=== PATIENT | male | born 1995 | race Caucasian/White ===

== ENCOUNTER 2017-12-18 18:51 | Inpatient (IN) | payer BC, OTHER ==
--- NOTE | 2017-12-18 19:11 | EDPHY ---
H & P Stated Complaint: skin redness - Personal History Current Tetanus/Diphtheria Vaccine: Yes Current Tetanus Diphtheria and Acellular Pertussis (TDAP): Yes - Medical/Surgical History Hx Asthma: No Hx Chronic Respiratory Disease: No Hx Diabetes: No Hx Cardiac Disease: No Hx Renal Disease: No Hx Cirrhosis: No Hx Alcoholism: No Hx HIV/AIDS: No Hx Splenectomy or Spleen Trauma: No Other PMH: opiate and benzo abuse, - Social History Smoking Status: Current every day smoker Time Seen by Provider: 12/18/17 19:11 Constitutional: Initial Vital Signs Temperature (C) 37.3 C 12/18/17 18:56 Heart Rate 108 H 12/18/17 18:56 Respiratory Rate 16 12/18/17 18:56 Blood Pressure 151/96 H 12/18/17 18:56 O2 Sat (%) 94 12/18/17 18:56 O2 Delivery Mode Room Air Allergies/Adverse Reactions: No Known Allergies Allergy (Verified 12/18/17 19:50) Medical Decision Making Procedures: Procedure: Abscess drainage. I was asked by Dr. Marek Lacy to perform incision drainage on the bilateral dorsal hand abscesses. The patient's abscess was located on the bilateral dorsal hand. I obtained verbal consent from the patient to drain the abscess who was informed about the possibility of bleeding and pain. The abscesses were incised with 15. Scalpel and a moderate amount of purulent drainage was expressed. I irrigated the wound and placed some packing bilaterally. Dorsal right hand wound aspirate obtained and sent to laboratory.. The patient tolerated the procedure well. The procedure was performed by myself. (Rohith Oviedo) ED Course/Re-evaluation: CHIEF COMPLAINT: Bilateral hand redness and swelling HISTORY OF PRESENT ILLNESS: The patient is a a 22 y/o male with a history of IV drug use complaining of bilateral hand redness and swelling. He admits to using IV heroin use in both wrists. Denies right armpit pain but has mild left armpit pain. Denies fever, chest pain, shortness of breath, abdominal pain, urinary or bowel complaints, numbness, paresthesias. REVIEW OF SYSTEMS: A 10 point review of systems was performed and is negative with the exception of the elements mentioned in the history of present illness. PHYSICAL EXAM: HR, BP, O2 Sat, RR. Temp noted General Appearance: Alert, well hydrated, appropriate, and non-toxic appearing. Head: Atraumatic without scalp tenderness or obvious injury Eyes: Pupils equal, round, reactive to light and accommodation, EOMI, no trauma , no injection. Ears: Clear bilaterally, no perforation, normal landmarks Nose: Atraumatic, no rhinorrhea, clear. Throat: There is no erythema or exudates, no lesions, normal tonsils, mucus membranes moist. Neck: Supple, nontender, no lymphadenopathy. Respiratory: No retractions, no distress, no wheezes, and no accessory muscle use. Lungs are clear to auscultation bilaterally. Cardiovascular: Regular rate and rhythm, no murmurs, rubs, or gallops. Bilateral carotid, radial, dorsalis pedis, and posterior tibial pulses intact. Good capillary refill all extremities. Gastrointestinal: Abdomen is soft, nontender, non-distended, no masses, no rebound, no guarding, no peritoneal signs. Musculoskeletal: Mild left axilla tenderness to palpation. Normal active ROM of all extremities, atraumatic. Neurological: Alert, appropriate, and interactive. Nonfocal neuro Skin: bilateral dorsal, distal wrist crease wrist abscess . No rashes, good turgor, no nodules on palpation. Past medical history: Opiate and benzo abuse Past surgical history: Denies Family history: Denies Social history: Homeless, single, not employed DIFFERENTIAL DIAGNOSIS: The differential diagnosis for the patient's abscesses included but was not limited to IV drug use, cellulitis, viral syndrome, and sepsis. MEDICAL DECISION MAKING: The patient is a a 22 y/o male with a history of IV drug use presenting with bilateral hand redness and swelling. On exam he has bilateral dorsal, distal wrist crease wrist abscess and mild left axilla tenderness to palpation. Labs ordered; imaging studies not indicated at this time. 2gm IV Vancomycin administered. [facility] will preform an I&D. 1942: Consulted with hospitalist service, Dr. Meeks accepts admission of this patient. 1949: Reassessed patient, his abscesses have been drained. Patient is comfortable with plan for admission. (Marek Lacy) Departure - Departure Disposition: [facility] Inpatient Acute Clinical Impression: Heroin abuse, Abscess Cellulitis Qualifiers: Site of cellulitis: extremity Site of cellulitis of extremity: upper extremity Laterality: left Qualified Code(s): L03.114 - Cellulitis of left upper limb Condition: Fair Report Scribed for: Marek Lacy Report Scribed by: Sarah Major Date of Report: 12/18/17 Time of Report: 19:12
[2017-12-18] MEDS ORDERED: VANCOMYCIN 2 GM in NS 500 ML IV ONE (19:15)
[2017-12-18] MEDS ORDERED: VANCOMYCIN 1 GM/NS 250 ML BAG IV ONE (19:51)
[2017-12-18 19:52] LABS: PLATELET COUNT 337 10^3/uL (150-400)
[2017-12-18 20:01] LABS: INR 1.32 (0.83-1.16); PROTIME(PATIENT) 16.6 SEC (12.0-15.0)
[2017-12-18] MEDS ORDERED: LORazepam 2 MG/ML INJ IVP PRN (20:46)
[2017-12-18] MEDS ORDERED: PROMETHAZINE HCL 25 MG/ML INJ IVP PRN (20:46)
[2017-12-18] MEDS ORDERED: ACETAMINOPHEN 325 MG TAB PO PRN (20:46)
[2017-12-18] MEDS ORDERED: ONDANSETRON DISINTEGRATING 4 MG TAB PO PRN (20:46)
[2017-12-18] MEDS ORDERED: LORazepam 0.5 MG TAB PO PRN (20:46)
[2017-12-18] MEDS ORDERED: ONDANSETRON 4 MG/2 ML VIAL IVP PRN (20:46)
[2017-12-18] MEDS ORDERED: KETOROLAC 30 MG/1 ML SDV IVP ONE ×2 (20:56→23:45)
[2017-12-18] MEDS ORDERED: NS 1,000 ML IV SCH (21:00)
--- NOTE | 2017-12-18 22:20 | GHP ---
[f rep st] HISTORY AND PHYSICAL DATE OF ADMISSION: 12/18/2017 CHIEF COMPLAINT: Swelling and redness in bilateral hands. HISTORY: This is a 22-year-old male with past medical history of IV drug abuse and benzodiazepine ab use, who presents with redness, pain, and swelling in his bilateral hands, left greater than right. He notes that he has been shooting heroin in both wrists over the last several days and developed abs cesses in both hands. He notes he has had fever on and off for the last several days as well. He brown s been attempting to quit using heroin and benzodiazepines relatively unsuccessfully. He states his last use was last night. He generally uses 2 g of heroin a day and up to 10 to 15 mg of Xanax per da y. He states he has been using Xanax for 6 years without any break. He does have a plan to be treat ed for his addiction in [place] and plans to return to [place] when he is discharged from this hospit al. He is beginning to have some mild symptoms of withdrawal but nothing severe at this time. PAST MEDICAL HISTORY: 1. IV drug abuse. 2. Benzodiazepine abuse. PAST SURGICAL HISTORY: Prior abscess drainage but otherwise none. SOCIAL HISTORY: Patient is currently homeless and single. He, again, uses opiates and benzos and is a cigarette smoker. FAMILY HISTORY: Patient denies. REVIEW OF SYSTEMS: 10-point review of systems obtained and negative except as per HPI. PHYSICAL EXAMINATION: VITAL SIGNS: BP 117/70, heart rate 91, respiratory rate 16, O2 sats 93% on ro om air, temperature 37.4. GENERAL APPEARANCE: Well-developed, well-nourished man. He is awake and alert. He is in no acute distress. EYES: Anicteric. HENT: Oropharynx clear. CARDIOVASCULAR: Re gular rate and rhythm. No MRG. PULMONARY: CTA bilaterally. Normal work of breathing. ABDOMEN: S oft, nontender. Positive bowel sounds. EXTREMITIES: No clubbing, cyanosis, or edema. SKIN: Bilat eral hands with significant erythema and edema on the dorsal surface. There are 2 areas that have be en incised and drained and packed in the ER. Otherwise, warm, dry, well perfused. NEURO/PSYCH: Ibeth rt, oriented, appropriate, pleasant. CLINICAL DATA: Labs reviewed notable for white blood cell count of 15.79. Coags are relatively norm al. Chemistry remarkable only for glucose of 117. ASSESSMENT AND PLAN: This is a 22-year-old man with past medical history of intravenous drug abuse p resenting with bilateral hand cellulitis. 1. Bilateral hand cellulitis with associated abscess that has now been incised, drained, and packed. Blood and wound cultures have been sent and are pending. Patient has been started on vancomycin, w hich will be continued. We will ask for Infectious Disease to help with ongoing management. 2. Intravenous drug abuse with complications as per above. Patient states that he has a plan to ent er detoxification in [place] once he is discharged from the hospital. We will request that Tyrone cao help to verify that this is the case. This may make his pain management difficult. He will b e started on scheduled Toradol as well as oxycodone and Dilaudid as needed. 3. Benzodiazepine abuse. Patient has been on benzodiazepines for 6 years. He states he has had iss ues in the past with withdrawal when he is off of those. We will begin scheduled Librium with as allison blue Ativan available if needed. Again, plan for rehab is as per above. 4. Leukocytosis in the setting of cellulitis. No other real evidence for sepsis at this time. 5. Inpatient status: Patient will need greater than 48-hour stay for evaluation and management of a lianna. Patient is new to my care. Old records reviewed and summarized as per HPI and past medical history. Care plan reviewed with ER physician as per above. /[id number]/MODL
[2017-12-19] MEDS: oxyCODONE IR 5 MG TAB PO PRN (02:44)
[2017-12-19] MEDS ORDERED: VANCOMYCIN 1.25 GM in NS 250 ML IV ONE (04:00)
[2017-12-19] MEDS: KETOROLAC 15 MG/1 ML SDV IVP SCH ×4 (05:33→23:53)
--- NOTE | 2017-12-19 10:42 | HOSPPROG ---
Hospitalist Progress Note Assessment/Plan: Patient is a 22-year-old male with past medical history of IV drug abuse and benzodiazepine abuse who presented with redness pain and swelling in his bilateral hands. He had been shooting heroin in both his wrist over the last relate days and developed abscesses in both hands. He has had fevers off and on. He generally uses 2 g of heroin a day and up to 10-15 of Xanax a day. Today is my 1st encounter with the patient. Chart reviewed. Discussed his care with Infectious Disease. Will ask for a hand surgeon to further evaluate him. * bilateral hand cellulitis with associated abscess that had been I indeed -continue antibiotics per Infectious Disease -spoke with Dr Segundo and he will see Julio César later today -Left hand appears more red and tender * IV drug abuse -heroine * benzodiazepine use and abuse -on scheduled Librium * alcohol abuse * leukocytosis -follow *Plan: appreciate Dr Segundo and Dr Gutierrez seeing Julio César. Will continue care and monitor for withdrawal symptoms. On scheduled Librium so this should help. Subjective: Julio César is tired, wants to sleep. Has pain with flexion of left wrist and has pain at finger joints mainly on the left hand. Objective: Vital Signs Temp Pulse Resp BP Pulse Ox 36.6 C 90 18 121/59 H 93 12/19/17 08:00 12/19/17 08:00 12/19/17 08:00 12/19/17 08:00 12/19/17 08:00 Laboratory Results 12/19/17 06:13 12/18/17 19:41 12/18/17 12/19/17 12/20/17 05:59 05:59 05:59 Intake Total 2300 Output Total 400 Balance 2300 -400 PT 16.6 SEC (12.0-15.0) H 12/18/17 19:41 INR 1.32 (0.83-1.16) H 12/18/17 19:41 - Physical Exam Constitutional: no apparent distress, appears nourished Eyes: PERRL Ears, Nose, Mouth, Throat: hearing normal Cardiovascular: regular rate and rhythym Respiratory: no respiratory distress Gastrointestinal: normoactive bowel sounds Skin: warm, other (bilateral hands with eythema, left hand dorsal area is a reddened area with packing in place.) Neurologic: AAOx3, other (sleepy) Psychiatric: interacting appropriately ICD10 Worksheet Patient Problems: Problems Problem Status Onset Abscess Acute Cellulitis Acute Heroin abuse Acute NYLA (acute kidney injury) Acute Contusion Acute Rhabdomyolysis Acute
--- NOTE | 2017-12-19 11:04 | PDMN ---
Medical Necessity Medical necessity: M70 Cellulitis A-2 days: high risk IV drug abuse, homeless , with cellulitis req I/D, leukocytosis, further monitoring and tx needed > 2 midnights.
--- NOTE | 2017-12-19 11:10 | ASMTCASEMG ---
Living Arrangements What is your living Answers: Alone arrangement? Who do you live with? Type Of Residence What kind of residence do Answers: Apartment you live in? Discharge Plan Comments Coordination Status Comments Notes: Pt is a 22 y/o man admitted for swelling and redness in bilateral hands. Pt is homeless. Pt uses iv opiates and benzos. CM attempted to meet w/ pt for dispo planning. Pt was asleep and CM was unable to rouse pt. CM dropped off substance abuse resources. CM was unable to complete the CAGE assessment. Cinthia from will be stopping by to meet with pt to determine if he has insurance. If not, Cinthia will have [employer] meet w/ pt to apply for Medicaid. [facility]. [facility] will check in with pt. Needs are TBD at this time. CM to follow. Plan: TBD Date Signed: 12/19/2017 11:10 AM Electronically Signed By:TRU Bean
--- NOTE | 2017-12-19 11:23 | GCON ---
[f rep st] CONSULTATION INFECTIOUS DISEASE CONSULTATION DATE OF CONSULTATION: 12/19/2017 REFERRING PHYSICIAN: Jimmy Meeks MD REASON FOR CONSULTATION: Bilateral swelling and redness. CHIEF COMPLAINT: Pain and redness involving both hands. HISTORY OF PRESENT ILLNESS: This is a 22-year-old male with a past medical history signifi cant for IV drug abuse, who last used heroin about 3-4 days ago. He states that he injected into bot h of his wrists regions. He states that shortly thereafter, he started to notice swelling and rednes s developing in both hands, with fevers and chills. He then started to have more localized swellings noted within those areas. He came into the ER yesterday, was found to have a leukocytosis of 15.7, with a low-grade temperature. He was tachycardic and mildly hypertensive. In the ED, they incised a nd drained 2 areas, 1 area on both hands, and packed them. He was put on vancomycin and remains on t hat presently. He states that he continues to have pain involving both hands. He complains of numbn ess of the fingertips and pressure involving the hands, and he is unable to flex his fingers bilatera lly to any significant degree. Blood cultures x2 sets have been drawn, and they are pending. He had a wound culture done from the I and D yesterday, which showed 2+ gram-positive cocci in chains and 1 + gram-positive rods. He states he denies any licking of needles. Infectious Disease is now consult ed for further evaluation and opinion. REVIEW OF SYSTEMS: GENERAL: Had fevers and chills. HEAD: No headaches. EYES: No change in visio n. ENT: No sore throat, difficulty swallowing, ear pain or ear drainage. CARDIOVASCULAR: Denies a ny chest pain or rapid heartbeat. RESPIRATORY: Denies any shortness of breath. No acute shortness of breath or coughing. He does have some chronic cough in general. ABDOMEN: No vomiting, abdominal pain, or diarrhea. He has some mild nausea today. GENITOURINARY: Denies any dysuria, hematuria, o r penile discharge. MUSCULOSKELETAL: Denies any other joint or muscle aches. SKIN: No other open wounds or areas of redness. Rest of 10-point review of systems essentially negative, except for abov e. PAST MEDICAL HISTORY: Significant for injection drug usage. PAST SURGICAL HISTORY: Related to previous abscess drainages. ALLERGIES: No known drug allergies. SOCIAL HISTORY: He smokes about a pack of cigarettes a day. He drinks about a liter of alcohol, whi ch includes vodka. He uses opiates and benzos. He is homeless and is single. FAMILY HISTORY: Reviewed and found to be unremarkable. MEDICATIONS: As per MAR. PHYSICAL EXAMINATION: VITAL SIGNS: Temperature current is 36.6. Pulse is 90. Blood pressure 121/5 9. Respiratory rate is 18. Saturations are 93% on room air. GENERAL: Patient is resting in bed. No acute respiratory distress. Awake, alert, and oriented x3. HEENT: Head is normocephalic, atraum atic. Eyes: Mild conjunctival injection bilaterally. No petechiae noted. Oropharynx is clear. No posterior drainage, erythema or thrush. CARDIOVASCULAR: S1, S2. Regular rate and rhythm. No murm urs appreciated. RESPIRATORY: Clear to auscultate bilaterally. No rhonchi or rales appreciated. A BDOMEN: Positive bowel sounds in all quadrants. Soft, nontender, nondistended. No obvious organome noman appreciated. EXTREMITIES: No lower extremity edema. Pertinent findings showed bilateral hand and wrist and distal forearm swelling. Both hands have erythema on the dorsal aspect, with the left hand having an abscess partially drained, but still some fluctuant fluid noted and is quite tender. The right hand with a smaller area drained. The skin is warm on both hands. Patient reports numbnes s on bilateral hands as I palpate his fingertips. His peripheral pulses on both upper extremities ar e well appreciated. He is only able to flex his fingers bilaterally minimally. No palmar erythema. Erythema is fairly limited to the dorsal aspect of the hands and wrist mostly, without any further l ymphangitic spread up the forearms. LABORATORY DATA: White blood cell count currently 9.2, down from 15.7, hemoglobin 13.0. Platelets a re 296. Venous lactic acid 1.2. Sodium 137, potassium 3.9, chloride 97, bicarb 26. BUN is 6, creat inine 0.6. Blood cultures x2 sets are pending. Hand cultures are as stated above. ASSESSMENT: 1. Bilateral hand cellulitis and abscess, status post partial incision and drainage, with possible f lexor tenosynovitis. 2. Injection drug usage. PLAN: At this point in time, given Gram stain findings, we will change antibiotics to Unasyn for bro ader coverage and discontinue vancomycin. Recommended elevating the upper extremities, and I have, i n coordination with the nurse, placed pillows to achieve that. Recommend Hand Surgery to be consulte d to assess for additional need for I and D or further exploration. We will hold off on any addition al MRI for now until Hand Surgery has seen the patient. We will repeat labs in the a.m. Given injec tion drug usage, will check HIV, hepatitis C and hepatitis B serologies to start, and if any of those are positive, further workup will be initiated. Care was coordinated with the hospitalist team. Ca re was coordinated with his nurse. Plan of care was discussed with the patient. I thank you very much for the opportunity to participate in the care for your patient. /[id number]/MODL
[2017-12-19] MEDS: AMPICILLIN/SULBACTAM 3 GM in NS 100 ML IV SCH ×3 (11:43→23:48)
[2017-12-19 13:04] LABS: HEPATITIS B SURFACE ANTIGEN NEGATIVE (NEGATIVE)
[2017-12-19 13:22] LABS: HEPATITIS B CORE AB TOTAL NEGATIVE (NEGATIVE); HEPATITIS C ANTIBODY TOTAL NEGATIVE (NEGATIVE); HIV TYPE 1 AND 2 NEGATIVE (NEGATIVE)
--- NOTE | 2017-12-19 14:04 | GCON ---
[f rep st] CONSULTATION DATE OF CONSULTATION: 12/19/2017 REASON FOR CONSULTATION: Hand infections. HISTORY OF PRESENTING COMPLAINT: The patient is a 22-year-old man who has a significant history of IV drug abuse. He was attempting to inject himself in both of his dorsal wrist areas when he developed swelling and redness. This apparently started about 3-4 days ago. He presented to the emergency room yesterday. He has been admitted to the hospital and started on IV antibiotics. PAST MEDICAL HISTORY: Significant for IV drug abuse. PAST SURGICAL HISTORY: He has had previous drainages of abscess. ALLERGIES: None known. PHYSICAL EXAMINATION: GENERAL: Today, he has been given Librium and apparently no other medications, but is very sleepy and unresponsive. I was able to rouse him enough to tell him who I was and that he would probably be needing surgery. EXTREMITIES: Examination of the extremities reveals diffuse erythema over the dorsum of both wrists, and necrotic areas are about a centimeter in diameter right at the level of the wrist joint on the left side with purulent, foul-smelling material draining out. IMPRESSION: Purulent hand infections, certainly down to the level of the extensor tendons and possibly down into the wrist joint. PLAN: Incision and drainage and irrigation in the operating room. /[id number]/MODL MTDD
[2017-12-19] MEDS ORDERED: BUPIVACAINE 0.5% 30 ML SDV ONE (16:40)
--- NOTE | 2017-12-19 17:38 | PDANEPAE ---
ANE History of Present Illness 22 yo IVDA with B wrist abscesses for I&D. ANE Past Medical History - Cardiovascular History Hx Hypertension: No Hx Arrhythmias: No Hx Chest Pain: No Hx Coronary Artery / Peripheral Vascular Disease: No Hx CHF / Valvular Disease: No Hx Palpitations: No - Pulmonary History Hx COPD: No Hx Asthma/Reactive Airway Disease: No Hx Oxygen in Use at Home: No Hx Sleep Apnea: No Sleep Apnea Screening Result - Last Documented: Negative - Endocrine History Hx Diabetes: No Hypothyroid: No Obesity: moderate - Liver History Hx Hepatic Disorders: No Hepatic History Comment: coags are elevated, no obvious reason - no LFTs in chart - Cancer History Hx Cancer: No - Other Health History Other Health History: Heroin and benzo abuse; EtOH and tobacco abuse - Chronic Pain History Chronic Pain: No ANE Review of Systems Review of Systems: - Systems Skin: Reports: other (abscesses on wrists) ANE Patient History - Allergies Allergies/Adverse Reactions: No Known Allergies Allergy (Verified 12/18/17 19:50) - Home Medications Home Medications: NK [No Known Home Meds] 12/18/17 [Last Taken Unknown] - NPO status NPO Since - Liquids (Date): 12/19/17 NPO Since - Liquids (Time): 09:00 NPO Since - Solids (Date): 12/19/17 NPO Since - Solids (Time): 09:00 - Anes Hx Anes Hx: no prior problems - Smoking Hx Smoking Status: Current every day smoker Marijuana use: No - Alcohol Use Alcohol Use: Heavy - Family Anes Hx Family Anes Hx: neg - N/A ANE Labs/Vital Signs - Labs Result Diagrams: 12/19/17 06:13 12/18/17 19:41 - Vital Signs Blood Pressure: 109/69 Heart Rate: 72 Respiratory Rate: 16 O2 Sat (%): 94 Height: 187.96 cm Weight: 127 kg ANE Physical Exam - Airway Mallampati Score: Class 3 (not cooperative with exam) Mouth exam: poor dentition - Pulmonary Pulmonary: clear to auscultation - Cardiovascular Cardiovascular: regular rate and rhythym - ASA Status ASA Status: III ANE Anesthesia Plan Anesthesia Plan: general endotracheal anesthesia
[2017-12-19] MEDS ORDERED: LR 1,000 ML IV ONE (17:45)
[2017-12-19] MEDS ORDERED: BACITRACIN 50,000 UNITS/10 ML SYR IRR ONE (18:05)
[2017-12-19] MEDS ORDERED: PROPOFOL/EMULSION 500 MG/50 ML BOTTLE IV ONE (18:07)
[2017-12-19] MEDS ORDERED: ROCURONIUM 100 MG/10 ML VIAL ONE (18:07)
[2017-12-19] MEDS ORDERED: LIDOCAINE 2% 5 ML SDV ONE (18:07)
[2017-12-19] MEDS ORDERED: ONDANSETRON 4 MG/2 ML VIAL ONE (18:25)
[2017-12-19] MEDS ORDERED: NEOSTIGMINE METHYLSULFATE 10 MG/10 ML MDV ONE ×2 (18:59→19:02)
[2017-12-19] MEDS ORDERED: GLYCOPYRROLATE 0.2 MG/1 ML VIAL ONE ×2 (19:02→19:03)
[2017-12-19] MEDS ORDERED: PROMETHAZINE HCL 25 MG/ML INJ IVP PRN (19:05)
[2017-12-19] MEDS ORDERED: HYDROmorphONE/DILAUDID 2 MG/ML INJ IVP PRN (19:05)
[2017-12-19] MEDS ORDERED: NALOXONE HCL 0.4 MG/ML INJ IVP PRN (19:05)
[2017-12-19] MEDS ORDERED: LR 500 ML IV PRN (19:05)
[2017-12-19] MEDS ORDERED: fentaNYL 100 MCG/2 ML INJ IVP PRN (19:05)
[2017-12-19] MEDS ORDERED: DIAZEPAM 5 MG/ML 1 ML SYR IVP PRN (19:05)
--- NOTE | 2017-12-19 19:32 | POSTOPPROG ---
Post Op Note Date of Operation: 12/19/17 Surgeon: Vijay Segundo Anesthesia: GET(General Endotracheal) Pre-op Diagnosis: Bilateral dorsal hand infections Post-op Diagnosis: same Procedure: Incision and drainage Findings: Infected pocket limited to extensor compartment Inf/Abcess present in the surg proc area at time of surgery?: Yes Depth: Deep Incisional (Fascial) EBL: 50-100
--- NOTE | 2017-12-19 19:36 | POSTANESTH ---
Post Anesthetic Evaluation Cardiovascular Status: Normal, Stable Respiratory Status: Normal, Stable Level of Consciousness/Mental Status: Moderately Sleepy, Other, See Comment ( Similar to pre-op state. Responds to questions with prodding. Keeps eyes closed. ) Pain Control: Adequate, Prn Tx Ordered Nausea/Vomiting Control: Adequate, Prn Tx Ordered Complications Possibly Related to Anesthesia: None Noted
[2017-12-19] MEDS ORDERED: KETOROLAC 15 MG/1 ML SDV ONE (19:43)
--- NOTE | 2017-12-19 19:45 | GOP ---
[f rep st] OPERATIVE REPORT DATE OF OPERATION: 12/19/2017 SURGEON: Vijay Segundo MD PREOPERATIVE DIAGNOSIS: Infection, bilateral dorsal hands. POSTOPERATIVE DIAGNOSIS: Infection, bilateral dorsal hands. PROCEDURE PERFORMED: Bilateral incision, drainage and irrigation of dorsal hand and distal forearm. FINDINGS: ESTIMATED BLOOD LOSS: 100 cc. DESCRIPTION OF PROCEDURE: With the patient lying supine under general anesthesia, both hands were prepped with Betadine and free draped. On the right side, the existing laceration was extended medially and laterally and proximally and distally in a curvilinear fashion, and the skin flaps were elevated. Significant bleeding from the inflamed tissue was encountered and a purulent underlying cavity was opened up. The cavity itself was fairly well confined and did not extend down below the extensor tendon level. Skin and soft tissue flaps were elevated at a level just above the extensor tendons, and the area was extensively undermined to ensure that there were not any separate purulent fluid pockets. Synovial tissue, which appeared to be chronically inflamed was encountered, but no purulent pockets. The purulent pocket that was present was well confined and did not extend down into the joint. I felt that it would be unwise to open up the joint and expose it to the contamination from the more superficial field. On the left side, a similar procedure was performed, although in this case there was a necrotic tissue at the edges of the existing wound that was debrided. Skin flaps were elevated, and again some purulent matter was countered, which was swabbed for Gram stain and culture. Again, undermining was carried out bluntly at a level just superficial to the tendons and all extensive boggy and inflamed synovium was encountered. No pus pockets were found. The initial pocket extended again on this side down to the tendon level, but not into the wrist itself. Again, the wrist joint was not opened up. Irrigation with the jet pulse editor newspaper was carried out on both sides using 3 L of saline with bacitracin. The wounds were closed loosely with 4-0 Prolene. In the case of the left dorsal wound where there had been necrotic tissue, a small area was left open and this was packed with saline soaked gauze. The remainder of the wound on the left side was dressed with dry gauze and Regino. A volar slab fiberglass padded splint was placed and on the right side the wound was dressed with Xeroform and gauze, and again a volar slab fiberglass splint was placed. The procedure was tolerated well. /[id number]/MODL MTDD
[2017-12-19] MEDS ORDERED: fentaNYL 100 MCG/2 ML INJ ONE (19:53)
[2017-12-19] MEDS: HYDROmorphone HCL/NS 0.5 MG/ML SYR IVP PRN (20:36)
[2017-12-20] MEDS: KETOROLAC 15 MG/1 ML SDV IVP SCH ×4 (05:13→23:12)
[2017-12-20] MEDS: AMPICILLIN/SULBACTAM 3 GM in NS 100 ML IV SCH ×4 (05:13→23:12)
[2017-12-20] MEDS: oxyCODONE IR 5 MG TAB PO PRN ×5 (05:44→21:46)
--- NOTE | 2017-12-20 09:06 | HOSPPROG ---
Hospitalist Progress Note Assessment/Plan: Patient is a 22-year-old male with past medical history of IV drug abuse and benzodiazepine abuse who presented with redness pain and swelling in his bilateral hands. He had been shooting heroin in both his wrist over the last relate days and developed abscesses in both hands. He has had fevers off and on. He generally uses 2 g of heroin a day and up to 10-15 of Xanax a day. * bilateral hand cellulitis with associated abscess -cx growing staph aureus -appreciate Dr Segundo -went to OR yesterday for I & D -unasyn * IV drug abuse -heroine * benzodiazepine use and abuse -on scheduled Librium * alcohol abuse -no ssx of withdrawal * leukocytosis -follow *Plan: cont current treatment Subjective: Julio César is not c/o pain, overall doing better today Objective: Vital Signs Temp Pulse Resp BP Pulse Ox 37.2 C 78 12 119/56 L 93 12/20/17 08:00 12/20/17 08:00 12/20/17 08:00 12/20/17 08:00 12/20/17 08:00 Microbiology 12/19/17 18:39 Gram Stain - Final Wrist - Eswab Laboratory Results 12/19/17 06:13 12/18/17 19:41 12/19/17 12/20/17 12/21/17 05:59 05:59 05:59 Intake Total 2300 1630 Output Total 550 Balance 2300 1080 PT 16.6 SEC (12.0-15.0) H 12/18/17 19:41 INR 1.32 (0.83-1.16) H 12/18/17 19:41 - Physical Exam Constitutional: no apparent distress, appears nourished, not in pain Eyes: PERRL Ears, Nose, Mouth, Throat: hearing normal Cardiovascular: regular rate and rhythym Respiratory: no respiratory distress Gastrointestinal: normoactive bowel sounds Skin: warm, other (bilateral hands in dressings) Neurologic: AAOx3 Psychiatric: interacting appropriately ICD10 Worksheet Patient Problems: Problems Problem Status Onset Abscess Acute Cellulitis Acute Heroin abuse Acute NYLA (acute kidney injury) Acute Contusion Acute Rhabdomyolysis Acute
[2017-12-20] MEDS ORDERED: BISACODYL 10 MG SUPP PR PRN (09:07)
[2017-12-20] MEDS ORDERED: LACTULOSE 20 GM/30 ML UDCUP PO PRN (09:07)
[2017-12-20] MEDS ORDERED: MAGNESIUM HYDROXIDE 30 ML UDCUP PO PRN (09:07)
[2017-12-20] MEDS: POLYETHYLENE GLYCOL 3350 17 GM PKT PO SCH (09:19)
--- NOTE | 2017-12-20 13:53 | SOAPPROG ---
SOAP Progress Note Assessment/Plan: Assessment:Marked improvement. Still a wound cavity present on the left hand dorsum that will need to heal in by secondary intention. Plan: Xeroform packing q day to left hand wound. Right hand dry gauze dressing. Maintain both wrists in splints for now. 12/20/17 13:53 Subjective: C/O discomfort in wrists. Objective: Dressings changed. Erythema is decreased on both side. Swelling in distal dorsum of right hand still significant. Left hand swelling much better. Wound cavity present on left hand where necrotic tissue was debrided looks nice and clean with no purulence or odor. Vital Signs Temp Pulse Resp BP Pulse Ox 36.9 C 83 12 120/62 92 12/20/17 12:00 12/20/17 12:00 12/20/17 12:00 12/20/17 12:00 12/20/17 12:00 Microbiology 12/19/17 18:39 Gram Stain - Final Wrist - Eswab Laboratory Results 12/19/17 06:13 12/18/17 19:41 12/19/17 12/20/17 12/21/17 05:59 05:59 05:59 Intake Total 2300 1630 Output Total 550 Balance 2300 1080 PT 16.6 SEC (12.0-15.0) H 12/18/17 19:41 INR 1.32 (0.83-1.16) H 12/18/17 19:41 D ICD10 Worksheet Patient Problems: Problems Problem Status Onset Abscess Acute Cellulitis Acute Heroin abuse Acute NYLA (acute kidney injury) Acute Contusion Acute Rhabdomyolysis Acute
--- NOTE | 2017-12-20 14:49 | PCMIDPN ---
Assessment/Plan: #B hand cellulitis w cx showing MSSA and gamma hem strep. reviewed OR report which showed s/p I&D in one area down to tendon. No joint involvement --Tdap 6 mo ago --ideally ID to be present during dressing change to assess duration of therapy. --if tendon involvement not significant then likely can change to PO antibiotic to complete therapy --based on culture results Unasyn is okay. # IVDU: reviewed HIV, HCV negative and lack of immunity to HBV. Patient not sure if he has been vaccinated but states during incarceration rec'd a variety of vaccinations. prior to current IVDU, he reports he was clean for 1 year using opioid antagonist Meds, abx # 2 Unasyn 3gm IV q6h, # 1 s/p vancomycin 2gm and 1.25gm dose micro 12/18 wound cx :1+ MSSA, 3+ streptococcus HIV, HCV neg HBV not immune Subjective: feeling better reports decreased erythema on hand B pain improved Objective: Vital Signs Temp Pulse Resp BP Pulse Ox 36.9 C 83 12 120/62 92 12/20/17 12:00 12/20/17 12:00 12/20/17 12:00 12/20/17 12:00 12/20/17 12:00 Microbiology 12/19/17 18:39 Gram Stain - Final Wrist - Eswab Laboratory Results 12/19/17 06:13 12/18/17 19:41 12/19/17 12/20/17 12/21/17 05:59 05:59 05:59 Intake Total 2300 1630 Output Total 550 Balance 2300 1080 - Physical Exam General Appearance: alert, no apparent distress, obese, non-toxic Respiratory: lungs clear, No accessory muscle use Neck: supple Cardiac/Chest: regular rate, rhythm, No systolic murmur Extremities: other (dressing in place B hand without erythema extending past dressings, moving fingers well Bilaterally), No pedal edema Abdomen: non-tender, soft Skin: other (extensive tattooing) Neuro/Psych: alert, normal mood/affect, oriented x 3 - Line/s PIV Lines: other (Right medial forearm), No drainage, No erythema ICD10 Worksheet Patient Problems: Problems Problem Status Onset Abscess Acute Cellulitis Acute Heroin abuse Acute NYLA (acute kidney injury) Acute Contusion Acute Rhabdomyolysis Acute
--- NOTE | 2017-12-20 17:05 | ASMTCMCOM ---
CM Note CM Note Notes: Receive call from Cinthia in , she spoke with pt's parents. They are in the process of submitting COBRA for pt's insurance ([facility]). His parents are flying out on Monday. Per MD note, ID to look at wound and if no tendon involvement, can switch to po antibiotics. DC Plan: TBD Date Signed: 12/20/2017 05:04 PM Electronically Signed By:Kathia Julian RN
[2017-12-20] MEDS: SENNOSIDES/DOCUSATE SODIUM TAB PO SCH (21:46)
[2017-12-21] MEDS: KETOROLAC 15 MG/1 ML SDV IVP SCH ×4 (05:18→23:10)
[2017-12-21] MEDS: AMPICILLIN/SULBACTAM 3 GM in NS 100 ML IV SCH ×4 (05:18→23:10)
[2017-12-21] MEDS: SENNOSIDES/DOCUSATE SODIUM TAB PO SCH ×2 (09:59→20:07)
[2017-12-21] MEDS: oxyCODONE IR 5 MG TAB PO PRN ×2 (09:59→20:09)
[2017-12-21] MEDS: POLYETHYLENE GLYCOL 3350 17 GM PKT PO SCH (09:59)
--- NOTE | 2017-12-21 16:04 | HOSPPROG ---
Hospitalist Progress Note Assessment/Plan: Patient is a 22-year-old male with past medical history of IV drug abuse and benzodiazepine abuse who presented with redness pain and swelling in his bilateral hands. He had been shooting heroin in both his wrist over the last relate days and developed abscesses in both hands. He has had fevers off and on. He generally uses 2 g of heroin a day and up to 10-15 of Xanax a day. * bilateral hand cellulitis with associated abscess -cx growing staph aureus -s/p I & D -unasyn * IV drug abuse -heroine * benzodiazepine use and abuse -on scheduled Librium * alcohol abuse -no ssx of withdrawal * leukocytosis -follow *Plan: cont current treatment,likely dc in the next few days Subjective: Julio César said his hands are tender and swollen. Objective: Vital Signs Temp Pulse Resp BP Pulse Ox 36.6 C 71 20 129/70 H 94 12/21/17 11:14 12/21/17 11:14 12/21/17 11:14 12/21/17 11:14 12/21/17 11:14 Microbiology 12/19/17 18:39 Gram Stain - Final Wrist - Eswab Laboratory Results 12/19/17 06:13 12/18/17 19:41 12/20/17 12/21/17 12/22/17 05:59 05:59 05:59 Intake Total 1630 400 Output Total 550 Balance 1080 400 PT 16.6 SEC (12.0-15.0) H 12/18/17 19:41 INR 1.32 (0.83-1.16) H 12/18/17 19:41 - Physical Exam Constitutional: no apparent distress, appears nourished, uncomfortable Eyes: PERRL Ears, Nose, Mouth, Throat: hearing normal Respiratory: no respiratory distress Skin: warm, other (hands bilaterally with dressing, fingers slightely swolle) Musculoskeletal: full muscle strength Neurologic: AAOx3 Psychiatric: interacting appropriately ICD10 Worksheet Patient Problems: Problems Problem Status Onset Abscess Acute Cellulitis Acute Heroin abuse Acute NYLA (acute kidney injury) Acute Contusion Acute Rhabdomyolysis Acute
[2017-12-21] MEDS: HYDROmorphone HCL/NS 0.5 MG/ML SYR IVP PRN (16:09)
--- NOTE | 2017-12-21 17:30 | PCMIDPN ---
Assessment/Plan: Assessment: Bilateral hand cellulitis/abscess. Status post debridement on the right dorsal aspect. The debridement is down to tendon but there is no joint involvement. Operative dressing not changed yet. If cleared by surgery that there is no active tendon sheath involvement we have the options to change to oral antibiotics to complete therapy. At present however will continue the IV Unasyn. Plan: 1. Continue IV Unasyn at present dosing. 2. Try to observe the open wounds at a later visit. Subjective: Patient states that his hands still hurt although they are improved from admission. No fevers or chills. Tolerating Unasyn without issue. Objective: Unasyn # 2 Vital Signs Temp Pulse Resp BP Pulse Ox 36.9 C 78 16 114/60 94 12/21/17 16:00 12/21/17 16:00 12/21/17 16:00 12/21/17 16:00 12/21/17 16:00 Microbiology 12/19/17 18:39 Gram Stain - Final Wrist - Eswab Laboratory Results 12/19/17 06:13 12/18/17 19:41 12/20/17 12/21/17 12/22/17 05:59 05:59 05:59 Intake Total 1630 400 Output Total 550 Balance 1080 400 - Physical Exam General Appearance: WD/WN, alert, no apparent distress, non-toxic Respiratory: lungs clear, normal breath sounds, No respiratory distress Cardiac/Chest: regular rate, rhythm, No tachycardia Extremities: No non-tender, No normal inspection Skin: normal color, warm/dry, No rash Neuro/Psych: alert, normal mood/affect, oriented x 3 ICD10 Worksheet Patient Problems: Problems Problem Status Onset Abscess Acute Cellulitis Acute Heroin abuse Acute NYLA (acute kidney injury) Acute Contusion Acute Rhabdomyolysis Acute
[2017-12-22] MEDS: AMPICILLIN/SULBACTAM 3 GM in NS 100 ML IV SCH ×2 (05:06→11:24)
[2017-12-22] MEDS: KETOROLAC 15 MG/1 ML SDV IVP SCH ×2 (05:07→11:24)
[2017-12-22 07:29] VITALS: BP 105/83
[2017-12-22] MEDS: oxyCODONE IR 5 MG TAB PO PRN ×2 (08:24→11:24)
--- NOTE | 2017-12-22 09:31 | PCMIDPN ---
Assessment/Plan: 1. Bilateral hand cellulitis with abscess status post debridement: Dressings taken off and patient seen with Catherine Lowe. Given appearance of his wound, I do feel that he is okay to be discharged on oral Augmentin 875 p. O. Twice daily for another 11 days. The patient will follow-up in our wound care clinic within the week, and we will give him instructions on how to keep his wounds clean. He does not feel that he needs follow-up in our clinic, as he plans on leaving for [place] as soon as possible. Subjective: In good spirits. Anxious to leave. Objective: Unasyn 3 g IV q.6 hours day 3 Afebrile Vital Signs Temp Pulse Resp BP Pulse Ox 36.5 C 59 L 12 105/83 H 95 12/22/17 07:25 12/22/17 07:25 12/22/17 07:25 12/22/17 07:25 12/22/17 07:25 Microbiology 12/19/17 18:39 Gram Stain - Final Wrist - Eswab Laboratory Results 12/19/17 06:13 12/18/17 19:41 12/21/17 12/22/17 12/23/17 05:59 05:59 05:59 Intake Total 400 1350 Balance 400 1350 Wounds with 3+ Eikenella corrodens, 1+ MSSA, 4+ Streptococcus and prevotella, Blood cultures negative - Physical Exam General Appearance: alert, no apparent distress Extremities: other (Left hand with dime-sized fairly deep ulceration with a clean base. Some surrounding swelling, but no erythema. Visible hands structures below look clean. Sutures in place on the dorsum of his hands, with no visible erythema. Again, swelling is better.) ICD10 Worksheet Patient Problems: Problems Problem Status Onset Abscess Acute Cellulitis Acute Heroin abuse Acute NYLA (acute kidney injury) Acute Contusion Acute Rhabdomyolysis Acute
--- NOTE | 2017-12-22 09:48 | HOSPPROG ---
Hospitalist Progress Note Assessment/Plan: Patient is a 22-year-old male with past medical history of IV drug abuse and benzodiazepine abuse who presented with redness pain and swelling in his bilateral hands. He had been shooting heroin in both his wrist over the last relate days and developed abscesses in both hands. He has had fevers off and on. He generally uses 2 g of heroin a day and up to 10-15 of Xanax a day. * bilateral hand cellulitis with associated abscess -spoke w Dr Segundo and he will see Julio César prior to dc -s/p I & D -unasyn * IV drug abuse -heroine * benzodiazepine use and abuse -on scheduled Librium * alcohol abuse -no ssx of withdrawal * leukocytosis -follow *Plan: dc today, will have his script for Augmentin sent here, DC after Dr Segundo sees him. Has an appointment at the wound clinic this next . Difficult to see sooner with the . Will have wound care teach him how to do dressing changes daily. Subjective: Julio César has no complaints except for some swelling discomfort. Objective: Vital Signs Temp Pulse Resp BP Pulse Ox 36.5 C 59 L 12 105/83 H 95 12/22/17 07:25 12/22/17 07:25 12/22/17 07:25 12/22/17 07:25 12/22/17 07:25 Microbiology 12/19/17 18:39 Gram Stain - Final Wrist - Eswab Laboratory Results 12/19/17 06:13 12/18/17 19:41 12/21/17 12/22/17 12/23/17 05:59 05:59 05:59 Intake Total 400 1350 Balance 400 1350 PT 16.6 SEC (12.0-15.0) H 12/18/17 19:41 INR 1.32 (0.83-1.16) H 12/18/17 19:41 - Physical Exam Constitutional: no apparent distress, appears nourished, not in pain Eyes: PERRL Ears, Nose, Mouth, Throat: hearing normal Respiratory: no respiratory distress Skin: other (left hand with open wound, base clear. Right hand with min redness , sutures in place. both hand with diffuse swelling, but much improved.) Neurologic: AAOx3 Psychiatric: interacting appropriately, not anxious ICD10 Worksheet Patient Problems: Problems Problem Status Onset Abscess Acute Cellulitis Acute Heroin abuse Acute NYLA (acute kidney injury) Acute Contusion Acute Rhabdomyolysis Acute
[2017-12-22] MEDS: SENNOSIDES/DOCUSATE SODIUM TAB PO SCH (09:52)
[2017-12-22] MEDS: POLYETHYLENE GLYCOL 3350 17 GM PKT PO SCH (09:52)
--- NOTE | 2017-12-22 10:28 | GDS ---
[f rep st] DISCHARGE SUMMARY DISCHARGE DIAGNOSES: 1. Bilateral hand cellulitis and abscess. 2. Intravenous drug use. 3. Benzodiazepine use and abuse. 4. Alcohol abuse. 5. Leukocytosis. CONSULTATIONS: 1. Dr. Vijay Segundo. 2. Dr. Shazia Gutierrez. BRIEF HISTORY: The patient is a 22-year-old male who is from the [facility]. He has a history of IV drug abuse and had used heroin approximately 3-4 days prior to his admission. He injected into both of his wrists region when he started noticing swelling and redness developing in both hands. He also had associated fevers and chills. He had blood cultures performed, which did not note any infection. His wound infection grew out Staph aureus, Streptococcus intermedius, Prevotella buccae. He was treated with IV antibiotics. He is markedly improved. He will be discharged today on Augmentin. He will further follow up with Dr. Segundo and the wound clinic in the outpatient setting. HOSPITAL COURSE: 1. Bilateral hand cellulitis with associated abscess, status post I and D. Was treated with Unasyn and now will be on Augmentin. Further followup with the wound clinic and with Dr. Segundo. 2. IV drug abuse. He realizes this is impacting his life dramatically. His hope is to return to the [place] area with his parents and go into inpatient rehabilitation. 3. Benzodiazepine use and abuse. He was on low-dose Librium without any signs or symptoms of withdrawals. 4. Alcohol abuse. He has had no signs or symptoms of withdrawal. DISCHARGE CONDITION: Stable. Blood pressure is 105/83, heart rate 59. Respiratory rate is 12. O2 sats on room air 95%. Temperature is 36.5 Celsius. DISCHARGE MEDICATIONS: Please see the EMR. DISCHARGE INSTRUCTIONS: 1. To go to the wound clinic next Monday. An appointment has already been scheduled. 2. Follow up with Dr. Segundo for removal of his sutures. 3. If he develops fever, chills, worsening purulence from his wounds, to return to the ER. Greater than 30 minutes discharging and coordinating the patient's care. /[id number]/MODL MTDD
--- NOTE | 2017-12-22 11:38 | ASMTLACE ---
LACE Length of stay for Answers: 4-6 days current admission Acuity / Level of Answers: Yes Care: Did the patient have an inpatient admission? # of Emergency department Answers: 1-2 visits in the last 6 months Social determinants Answers: History of substance abuse (ETOH, street drugs, prescription drugs, etc.) Lack of community resources and/or lack of social support (no pcp, lives alone, transportation, julio cesar d) Score: 15 Date Signed: 12/22/2017 11:37 AM Electronically Signed By:TRU Bean
--- NOTE | 2017-12-22 11:38 | ASMTCAGE ---
CAGE Do you feel you ought to Answers: Yes cut down on your drinking or drug use? Do people annoy you by Answers: No criticizing your drinking or drug use? Do you feel guilty about Answers: Yes your drinking or drug use? Do you drink or use drugs Answers: No first thing in the morning (Eye Suggestion Clerk)? Date Signed: 12/22/2017 11:37 AM Electronically Signed By:TRU Bean
== END 2017-12-22 15:15 | disposition home or self-care (01) | DRG 580 ==
LOC: INTOOBSV 19:35 → OBSVTOIN 19:35 → F3E 21:03
PROVIDERS: ADMIT Internal Medicine; ATTEND Internal Medicine
PROC: 0J9K0ZZ Drainage of Left Hand Subcutaneous Tissue and Fascia, Open Approach (ICD-10-PCS; 2017-12-18)
PROC: 0J9J0ZZ Drainage of Right Hand Subcutaneous Tissue and Fascia, Open Approach (ICD-10-PCS; 2017-12-18)
PROC: 0J9J0ZZ Drainage of Right Hand Subcutaneous Tissue and Fascia, Open Approach (ICD-10-PCS; principal; 2017-12-19 17:30)
PROC: 3E10X8Z Irrigation of Skin and Mucous Membranes using Irrigating Substance (ICD-10-PCS; principal; 2017-12-19 17:30)
PROC: 0J9K0ZZ Drainage of Left Hand Subcutaneous Tissue and Fascia, Open Approach (ICD-10-PCS; principal; 2017-12-19 17:30)
DX: L02.511 Cutaneous abscess of right hand (principal); L02.512 Cutaneous abscess of left hand; B95.61 Methicillin susceptible Staphylococcus aureus infection as the cause of diseases classified elsewhere; B95.4 Other streptococcus as the cause of diseases classified elsewhere; B96.89 Other specified bacterial agents as the cause of diseases classified elsewhere; L03.113 Cellulitis of right upper limb; L03.114 Cellulitis of left upper limb; F11.10 Opioid abuse, uncomplicated; F13.10 Sedative, hypnotic or anxiolytic abuse, uncomplicated; F10.10 Alcohol abuse, uncomplicated; F17.210 Nicotine dependence, cigarettes, uncomplicated; Z59.0 Homelessness
CPT/HCPCS: 86704-90; 97165-GO; G0472; J0295; J1170; J1885; J2405; J2704; J3010; J3370